=== PATIENT | male | born 1960 | race Caucasian/White ===

== ENCOUNTER → 2018-05-11 | Outpatient (REF) | payer OTHER ==
[~2018-05-11] MED LIST: ALEVE220 MG PO
[2018-05-11 10:00] VITALS: BP 139/94
== END | disposition home or self-care (01) | DRG 951 ==
LOC: FIORUCCI 09:25
PROVIDERS: ATTEND Surgery
DX: Z86.010 Personal history of colon polyps (principal)

== ENCOUNTER → 2018-05-16 | Outpatient (REF) | payer OTHER ==
[~2018-05-16] VITALS: Ht 177.8 cm; Wt 87.1 kg
[2018-05-16 09:47] VITALS: BP 129/82
== END | disposition home or self-care (01) | DRG 951 ==
LOC: ORM 08:30 → PO 08:38 → ORM 05-19 09:00
PROVIDERS: ATTEND Surgery
DX: Z01.818 Encounter for other preprocedural examination (principal); C18.9 Malignant neoplasm of colon, unspecified; G40.802 Other epilepsy, not intractable, without status epilepticus; Z98.890 Other specified postprocedural states; Z72.89 Other problems related to lifestyle

== ENCOUNTER → 2018-05-19 | Day surgery (SDC) | payer OTHER ==
[2018-05-19 10:12] VITALS: BP 131/89
== END | disposition home or self-care (01) | DRG 951 ==
LOC: ENDO 06:53 → ORM 09:00 → ENDO 09:00 → PO 09:00
PROVIDERS: ATTEND Surgery
PROC: 0DBP8ZX Excision of Rectum, Via Natural or Artificial Opening Endoscopic, Diagnostic (ICD-10-PCS; principal; 2018-05-19)
PROC: 0DBL8ZX Excision of Transverse Colon, Via Natural or Artificial Opening Endoscopic, Diagnostic (ICD-10-PCS; 2018-05-19)
DX: Z12.11 Encounter for screening for malignant neoplasm of colon (principal); D12.3 Benign neoplasm of transverse colon; K62.1 Rectal polyp; K57.30 Diverticulosis of large intestine without perforation or abscess without bleeding; K64.8 Other hemorrhoids; Z86.010 Personal history of colon polyps; Z80.0 Family history of malignant neoplasm of digestive organs